=== PATIENT | female | born 1990 | race Caucasian/White ===

== ENCOUNTER 2023-08-17 17:56 | Outpatient (REF) | payer MEDICAID, SELFPAY | END 2023-08-17 17:57 | disposition home or self-care (01) | LOC: NCHCN 17:56 | PROVIDERS: Visit Provider Family Medicine | DX: J02.9 Acute pharyngitis, unspecified (principal) | CPT/HCPCS: 87077; 87070 ==

== ENCOUNTER 2023-12-30 14:51 | Outpatient (REF) | payer MEDICAID, SELFPAY ==
[2023-12-30 15:38] LABS: Abs Immature Grans 0.03 10^3/uL (0.0-0.06); Absolute Basophil Count 0.06 10^3/uL (0.0-0.2); Absolute Eosinophil Count 0.16 10^3/uL (0.0-0.7); Absolute Lymphocyte Count 2.62 10^3/uL (1.2-3.4); Absolute Monocyte Count 0.83 10^3/uL (0.1-0.8); Basophils % 0.7; Eosinophils % 1.7; HCT 46.7 % (36.0-46.0); HGB 15.6 g/dL (11.2-15.7); Immature Grans % 0.3; Lymphocytes % 28.5; MCH 28.5 pg (27.0-33.0); MCHC 33.4 % (32.0-36.0); MCV 85 fL (80-95); MPV 9.3 fL (8.0-11.0); Neutrophils % 59.8; Platelet Count 313 10^3/uL (130-400); RBC 5.48 10^6/uL (3.93-5.22); RDW 13.3 % (11.7-14.6); RDW-SD 41.8 fL
[2023-12-30 15:43] LABS: INR 0.9 (0.9-1.1); Prothrombin Time 9.2 sec (9.1-11.1)
[2023-12-30 16:05] LABS: ALT 141 U/L (14-59); AST 85 U/L (15-37); Albumin 4.4 g/dL (3.4-5.0); Alkaline Phosphatase 91 U/L (46-116); Anion Gap 10.8 mmol/L (3-11); BUN 17 mg/dL (7-18); Bilirubin, Total 0.4 mg/dL (0.2-1.0); CO2 26.2 mmol/L (21.0-32.0); CREATININE 0.8 mg/dL (0.55-1.02); Calcium 9.2 mg/dL (8.5-10.1); Chloride 103 mmol/L (98-107); Estimated GFR 100.96 (mL/min/1.73m2); GGT 41 U/L (5-55); Glucose 85 mg/dL (74-106); Potassium 3.9 mmol/L (3.5-5.1); Sodium 140 mmol/L (136-145); Total Protein 8.6 g/dL (6.4-8.2)
[2023-12-30 22:45] LABS: HIV-1/2 Ag & Ab Screen Negative (Negative)
[2023-12-30 22:49] LABS: HBs Antibody, Quant 39.7 mIU/mL (See Note); Hep A Total Ab w Rflx IgM Negative (Negative); Hep B Surface Ab Positive (See Note); Hepatitis B Core Antibody Negative (Negative); Hepatitis B Surface Antigen Negative (Negative)
[2024-01-02 11:41] LABS: HCV RNA Detection Quantitative 705000 IU/mL (Undetected); HCV RNA Qualitative Detected (Undetected)
[2024-01-02 16:18] LABS: ALT 126 U/L (7-45); ActiTest Grade A2; ActiTest Interpretation significant activity; ActiTest Score 0.59; Alpha-2-Macroglobulin 247 mg/dL (100 - 280); Apoliprotein A1 165 mg/dL (>=140); Bilirubin, Total 0.3 mg/dL (0.0 - 1.2); FibroTest Interpretation no fibrosis; FibroTest Score 0.11; FibroTest Stage F0; GGT 27 U/L (5 - 36); Haptoglobin 93 mg/dL (30 - 200)
[2024-01-04 12:10] LABS: HCV Genotype Indeterminate (Undetected)
== END 2023-12-30 14:52 | disposition home or self-care (01) ==
LOC: NCHCN 14:51
PROVIDERS: PCP Family Medicine; Visit Provider Family Medicine
DX: B18.2 Chronic viral hepatitis C (principal)
CPT/HCPCS: 80053; 81596; 86704; 86706; 86709; 87340; 87389; 87522; 82977; 85025; 85610; 87521